=== PATIENT | male | born 1970 | race Caucasian/White ===

== ENCOUNTER 2019-03-17 03:17 | Emergency (ER) | payer OTHER ==
[~2019-03-17] VITALS: Ht 170.2 cm; Wt 88.5 kg
[2019-03-17 03:20] VITALS: BP 129/85
--- NOTE | 2019-03-17 03:40 | NUR ---
Pt to room 18, c/o left ring finger trauma, states "I hit it with a mallot at work this am". Deformity and open lac noted, CMS inact, no active bleeding noted. Pt staes pain is 1/10, refuses medication or ice. Provider at bedside.
[2019-03-17] MEDS ORDERED: LIDOCAINE-MPF 1%, 5ML ONE (03:45)
[2019-03-17] MEDS ORDERED: DIPH,PERTUSS(ACELL),TET VAC/PF 0.5 ML IM-VACC ONE ×2 (04:00→04:49)
[2019-03-17] MEDS ORDERED: LIDOCAINE-MPF 1%, 5ML INFIL ONE (04:00)
--- NOTE | 2019-03-17 04:15 | NUR ---
Lac tray set up, lidocaine administered by PAC, wound irrigated with NS, tolerates well.
--- NOTE | 2019-03-17 05:02 | NUR ---
Finger splint applied, CMS remains intact, IM Tdap given.
== END 2019-03-17 05:07 | disposition home or self-care (01) ==
LOC: ED 05:00
DX: S62.635B Displaced fracture of distal phalanx of left ring finger, initial encounter for open fracture (principal); S61.215A Laceration without foreign body of left ring finger without damage to nail, initial encounter; X58.XXXA Exposure to other specified factors, initial encounter; Y93.89 Activity, other specified; Y92.69 Other specified industrial and construction area as the place of occurrence of the external cause; Y99.0 Civilian activity done for income or pay
CPT/HCPCS: 12041; 29130; 90471; 90715; 99284